=== PATIENT | female | born 1975 | race American Indian/Alaskan Native ===

== ENCOUNTER 2020-11-14 16:58 | Emergency (ER) | payer MEDICAID ==
[2020-11-14] MEDS ORDERED: FAMOTIDINE 20 MG/2 ML INJ IV ONE ×3 (17:13→19:35)
[2020-11-14] MEDS ORDERED: LIDOCAINE VISCOUS 2% 15 ML ORAL LIQD PO ONE ×2 (17:13→19:38)
[2020-11-14] MEDS ORDERED: ONDANSETRON 4 MG/2 ML INJ IV ONE (17:13)
[2020-11-14] MEDS ORDERED: ALUM-MAG HYDROXIDE-SIMETHICONE 200-200-20MG/5ML ORAL LIQD 30 ML PO ONE ×2 (17:13→19:38)
--- NOTE | 2020-11-14 17:18 | Event Note ---
ED Screening Note Date of service: 11/14/20 Time: 17:00 ED Screening Note: Patient is a 45 yo AA female with a h/o gastroparesis and s/p gastric sleeve surgery, HTN and obesity who presents to the ED with c/o acute onset persistent intractable nausea and vomiting, epigastric pain that radiates to the substernal area with a severe burning sensation and dyspnea for the last 2 hours after eating a highly spicy food. Patient states that the symptoms have worsened in the last 1 hour. Patient denies dizziness, fever, chills, cough, sore throat, headache, dysuria, urinary urgency and frequency and hematemesis. This initial assessment/diagnostic orders/clinical plan/treatment(s) is/are subject to change based on patients health status, clinical progression and re- assessment by fellow clinical providers in the ED. Further treatment and workup at subsequent clinical providers discretion. Patient/guardian urged not to elope from the ED as their condition may be serious if not clinically assessed and managed. Initial orders include: CBC, CMP, Troponin, CXR, EKG
[2020-11-14 17:54] LABS: Basophils % (Auto) 0.3 % (0.0-1.8); Eosinophils % (Auto) 0.4 % (0.0-4.3); Hemoglobin 13.3 gm/dl (10.1-14.3); Lymphocytes # (Auto) 1.3 K/mm3 (1.2-5.4); Lymphocytes % (Auto) 19.6 % (13.4-35.0); Mean Corpuscular HGB Conc 32 % (30-34); Mean Corpuscular Volume 91 fl (79-97); Monocytes # (Auto) 0.3 K/mm3 (0.0-0.8); Monocytes % (Auto) 4.9 % (0.0-7.3); Platelet Count 177 K/mm3 (140-440); Red Blood Count 4.51 M/mm3 (3.65-5.03); Red Cell Distribution Width 13.6 % (13.2-15.2)
--- NOTE | 2020-11-14 17:58 | XRay Report ---
CHEST 2 VIEWS INDICATION / CLINICAL INFORMATION: MAIN. Chest pain COMPARISON: Chest radiograph 01/24/2013 FINDINGS: SUPPORT DEVICES: None. HEART / MEDIASTINUM: No significant abnormality. LUNGS / PLEURA: No significant pulmonary or pleural abnormality. No pneumothorax. ADDITIONAL FINDINGS: No significant additional findings. IMPRESSION: 1. No acute findings. Signer Name: Magali Meier MD Signed: 11/14/2020 5:54 PM Workstation Name: [id number]
[2020-11-14 18:17] LABS: Alanine Aminotransferase 13 units/L (7-56); Albumin 4.5 g/dL (3.9-5); BUN/Creatinine Ratio 10; Blood Urea Nitrogen 8 mg/dL (7-17); Calcium 9.2 mg/dL (8.4-10.2); Hemolysis Index 9
[2020-11-14] MEDS ORDERED: hydrALAZINE 20 MG/1 ML INJ IV ONE (19:07)
--- NOTE | 2020-11-14 19:11 | Emergency Department Report ---
ED General Adult HPI - General Chief complaint: Chest Pain Stated complaint: CHEST/STOMACH PAIN Time Seen by Provider: 11/14/20 18:39 Source: patient Mode of arrival: Ambulatory Limitations: No Limitations - History of Present Illness Initial comments: The patient presents to the emergency department the chief complaint of substernal chest pain that she describes as pressure that started 30 minutes prior to arrival to the ED. Patient states the chest pain has completely resolved at this time. 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 Patient's blood pressure was 220/123 on arrival to the ED and the patient states she has not taken her blood pressure medications today. Patient now denies chest pain, shortness breath, or headache. Also denies abdominal pain. -: Sudden Location: chest Severity scale (0 -10): 4 Quality: dull Consistency: now resolved Improves with: none Worsens with: none Associated Symptoms: denies other symptoms Treatments Prior to Arrival: none - Related Data Previous Rx's Medication Instructions Recorded Last Taken Type Omeprazole Magnesium [Prilosec] 10 mg PO QDAY #30 suspdr.pkt 11/14/20 Unknown Rx Allergies Allergy/AdvReac Type Severity Reaction Status Date / Time sumatriptan [From Imitrex] Allergy Swelling Verified 11/14/20 17:06 ED Review of Systems ROS: Stated complaint: CHEST/STOMACH PAIN Other details as noted in HPI Comment: All other systems reviewed and negative Constitutional: denies: chills, fever Eyes: denies: eye pain, eye discharge, vision change ENT: denies: ear pain, throat pain Respiratory: denies: cough, shortness of breath, wheezing Cardiovascular: chest pain. denies: palpitations Endocrine: no symptoms reported Gastrointestinal: denies: abdominal pain, nausea, diarrhea Genitourinary: denies: urgency, dysuria, discharge Musculoskeletal: denies: back pain, joint swelling, arthralgia Skin: denies: rash, lesions Neurological: denies: headache, weakness, paresthesias Psychiatric: denies: anxiety, depression Hematological/Lymphatic: denies: easy bleeding, easy bruising ED Past Medical Hx - Past Medical History Hx Hypertension: Yes - Surgical History Additional Surgical History: GASTRIC SLEEVE 2019 - Social History Smoking Status: Never Smoker Substance Use Type: Alcohol - Medications Home Medications: Home Medications Medication Instructions Recorded Confirmed Last Taken Type Omeprazole Magnesium [Prilosec] 10 mg PO QDAY #30 suspdr.pkt 11/14/20 Unknown Rx ED Physical Exam - General Limitations: No Limitations General appearance: alert, in no apparent distress - Head Head exam: Present: atraumatic, normocephalic - Eye Eye exam: Present: normal appearance, PERRL, EOMI - ENT ENT exam: Present: mucous membranes moist - Neck Neck exam: Present: normal inspection - Respiratory Respiratory exam: Present: normal lung sounds bilaterally. Absent: respiratory distress - Cardiovascular Cardiovascular Exam: Present: regular rate, normal rhythm. Absent: systolic murmur, diastolic murmur, rubs, gallop - GI/Abdominal GI/Abdominal exam: Present: soft, normal bowel sounds. Absent: distended, tenderness - Extremities Exam Extremities exam: Present: normal inspection - Back Exam Back exam: Present: normal inspection - Neurological Exam Neurological exam: Present: alert, oriented X3, CN II-XII intact. Absent: motor sensory deficit - Psychiatric Psychiatric exam: Present: normal affect, normal mood - Skin Skin exam: Present: warm, dry, intact, normal color. Absent: rash ED Course Vital Signs 11/14/20 11/14/20 11/14/20 17:09 18:32 19:39 Temperature 97.4 F L Pulse Rate 68 70 68 Respiratory 18 18 Rate Blood Pressure 220/123 186/101 Blood Pressure 173/92 [Left] O2 Sat by Pulse 100 99 Oximetry 11/14/20 19:46 Temperature Pulse Rate 76 Respiratory 17 Rate Blood Pressure Blood Pressure 175/97 [Left] O2 Sat by Pulse 100 Oximetry ED Medical Decision Making - Lab Data Result diagrams: 11/14/20 17:12 11/14/20 17:12 Lab Results 11/14/20 11/14/20 Range/Units 17:12 17:12 WBC 6.8 (4.5-11.0) K/mm3 RBC 4.51 (3.65-5.03) M/mm3 Hgb 13.3 (10.1-14.3) gm/dl Hct 41.0 (30.3-42.9) % MCV 91 (79-97) fl MCH 30 (28-32) pg MCHC 32 (30-34) % RDW 13.6 (13.2-15.2) % Plt Count 177 (140-440) K/mm3 Lymph % (Auto) 19.6 (13.4-35.0) % [place] % (Auto) 4.9 (0.0-7.3) % Eos % (Auto) 0.4 (0.0-4.3) % Baso % (Auto) 0.3 (0.0-1.8) % Lymph # (Auto) 1.3 (1.2-5.4) K/mm3 [place] # (Auto) 0.3 (0.0-0.8) K/mm3 Eos # (Auto) 0.0 (0.0-0.4) K/mm3 Baso # (Auto) 0.0 (0.0-0.1) K/mm3 Seg Neutrophils % 74.8 H (40.0-70.0) % Seg Neutrophils # 5.1 (1.8-7.7) K/mm3 Sodium 139 (137-145) mmol/L Potassium 3.7 (3.6-5.0) mmol/L Chloride 104.9 (98-107) mmol/L Carbon Dioxide 24 (22-30) mmol/L Anion Gap 14 mmol/L BUN 8 (7-17) mg/dL Creatinine 0.8 (0.6-1.2) mg/dL Estimated GFR > 60 ml/min BUN/Creatinine Ratio 10 % Glucose 104 H (65-100) mg/dL Calcium 9.2 (8.4-10.2) mg/dL Total Bilirubin 0.60 (0.1-1.2) mg/dL AST 14 (5-40) units/L ALT 13 (7-56) units/L Alkaline Phosphatase 64 (35-129) units/L Troponin T < 0.010 (0.00-0.029) ng/mL Total Protein 7.6 (6.3-8.2) g/dL Albumin 4.5 (3.9-5) g/dL Albumin/Globulin Ratio 1.5 % Lipase 17 (13-60) units/L - EKG Data -: EKG Interpreted by Me EKG shows normal: sinus rhythm Rate: normal - Radiology Data Radiology results: report reviewed - Medical Decision Making Patient given IV hydralazine for her elevated blood pressure Discussed results with patient Critical care attestation.: If time is entered above; I have spent that time in minutes in the direct care of this critically ill patient, excluding procedure time. ED Disposition Clinical Impression: Nonspecific chest pain, Hypertension Disposition: DC- TO HOME OR SELFCARE Is pt being admited?: No Does the pt Need Aspirin: No Condition: Stable Instructions: Chest Pain (ED), Hypertension (ED), Nonspecific Chest Pain, Adult, Hypertension, Adult Additional Instructions: return if worse Prescriptions: Omeprazole Magnesium [Prilosec] 10 mg PO QDAY #30 suspdr.pkt Referrals: PRIMARY CAREMD [Primary Care Provider] - 3-5 Days RADHA BURK MD [Staff Physician] - 3-5 Days Time of Disposition: 19:53 Heart Score - HEART Score History: Slightly suspicious EKG: Normal Age: < 45 Risk factors: 1-2 risk factors Troponin: < normal limit HEART Score: 1
[2020-11-14 20:08] VITALS: BP 174/91
== END 2020-11-14 20:07 | disposition home or self-care (01) ==
LOC: ED 16:58
DX: R07.89 Other chest pain (principal); I10 Essential (primary) hypertension; Z98.890 Other specified postprocedural states; Z79.899 Other long term (current) drug therapy; Z88.8 Allergy status to other drugs, medicaments and biological substances
CPT/HCPCS: 36415; 71046; 80053; 83690; 84484; 85025; 93005; 96374; 96375; 99284; J0360